=== PATIENT | female | born 1995 | race Caucasian/White ===

== ENCOUNTER → 2021-09-30 | Outpatient (REF) | LOC: M LABSMTC 09:33 | PROVIDERS: ATTEND Pediatrics | DX: Z20.822 Contact with and (suspected) exposure to COVID-19 (principal) ==

== ENCOUNTER → 2022-01-08 | Outpatient (CLI) | payer OTHER ==
[2022-01-08 17:17] LABS: BASO % 0.5 % (0.0-1.0); EOS # 0.1 10^3/uL (0.0-0.5); EOS % 0.8 % (0.0-3.0); HEMOGLOBIN 11.4 g/dl (12.0-15.5); LYMPH # 1.8 10^3/uL (1.5-5.0); LYMPH % 23.7 % (24.0-44.0); MEAN CORPUSCULAR HEMOGLOBIN 19.8 pg (27.0-33.0); MEAN CORPUSCULAR HGB CONC 30.8 g/dl (32.0-36.5); MEAN CORPUSCULAR VOLUME 64.3 fl (80.0-96.0); MONO # 0.5 10^3/uL (0.0-0.8); MONO % 6.8 % (2.0-8.0); NEUTROPHILS # 5.1 10^3/uL (1.5-8.5); NEUTROPHILS % 67.9 % (36.0-66.0); PLATELET COUNT, AUTOMATED 243 10^3/uL (150-450); RED BLOOD COUNT 5.75 10^6/uL (4.00-5.40); WHITE BLOOD COUNT 7.5 10^3/uL (4.0-10.0)
[2022-01-08 17:45] LABS: ALBUMIN 4.2 GM/DL (3.2-5.2); ALT/SGPT 30 U/L (12-78); BILIRUBIN,TOTAL 0.4 MG/DL (0.2-1.0); BLOOD UREA NITROGEN 7 MG/DL (7-18); CALCIUM LEVEL 9.4 MG/DL (8.5-10.1); CARBON DIOXIDE LEVEL 27 MEQ/L (21-32); CHLORIDE LEVEL 109 MEQ/L (98-107); FERRITIN 12 NG/ML (8-252); FREE T4 0.76 NG/DL (0.76-1.46); GLOMERULAR FILTRATION RATE > 60.0 (>60); GLUCOSE, FASTING 80 MG/DL (70-100); IRON (FE) 52 UG/DL (50-170); PERCENT SATURATION 13.9 % (13.2-45.0); POTASSIUM SERUM 4.3 MEQ/L (3.5-5.1); SODIUM LEVEL 141 MEQ/L (136-145); TOTAL IRON BINDING CAPACITY 375 UG/DL (250-450); TOTAL PROTEIN 6.9 GM/DL (6.4-8.2)
== END ==
LOC: M PLALAB 15:36
PROVIDERS: ATTEND Physician Assistant
DX: R53.83 Other fatigue (principal)

== ENCOUNTER → 2022-02-05 | Outpatient (CLI) | payer OTHER ==
[2022-02-05 19:07] LABS: MONO REFLEX EBV VCA IgM NEGATIVE (NEGATIVE)
[2022-02-07 15:08] LABS: EBV VIRAL CAPSID AG IgM <36.0 U/mL (0.0-35.9)
== END ==
LOC: M PLALAB 15:20
PROVIDERS: ATTEND Physician Assistant
DX: R53.83 Other fatigue (principal)
CPT/HCPCS: 36415; 86308; 86618; 86665; G0463

== ENCOUNTER → 2022-02-14 | Outpatient (CLI) | payer OTHER | LOC: M CARPUL 11:02 | PROVIDERS: ATTEND Physician Assistant | DX: Z87.09 Personal history of other diseases of the respiratory system (principal) ==

== ENCOUNTER → 2022-04-02 | Outpatient (CLI) | payer OTHER ==
[2022-04-02 17:23] LABS: C REACTIVE PROTEIN QUANTITATIV < 0.30 MG/DL (0.00-0.30); RHEUMATOID FACTOR QUANT < 10.0 IU/ML (<15.0)
[2022-04-05 01:07] LABS: ANA (HEP2) Negative (.); CYCLIC CITRULLINATED PEPTIDE 6 units (0-19)
== END ==
LOC: M PLAIMG 13:52
PROVIDERS: ATTEND Physician Assistant
DX: M62.830 Muscle spasm of back (principal)

== ENCOUNTER → 2022-04-09 | Outpatient (CLI) | payer OTHER ==
[2022-04-09 10:32] LABS: BASO % 0.4 % (0.0-1.0); EOS # 0.1 10^3/uL (0.0-0.5); EOS % 1.2 % (0.0-3.0); HEMATOCRIT 37.6 % (36.0-47.0); HEMOGLOBIN 11.8 g/dl (12.0-15.5); LYMPH # 1.2 10^3/uL (1.5-5.0); LYMPH % 25.6 % (24.0-44.0); MEAN CORPUSCULAR HEMOGLOBIN 20.4 pg (27.0-33.0); MEAN CORPUSCULAR HGB CONC 31.4 g/dl (32.0-36.5); MEAN CORPUSCULAR VOLUME 65.1 fl (80.0-96.0); MONO # 0.4 10^3/uL (0.0-0.8); MONO % 7.9 % (2.0-8.0); NEUTROPHILS # 3.1 10^3/uL (1.5-8.5); NEUTROPHILS % 64.3 % (36.0-66.0); PLATELET COUNT, AUTOMATED 240 10^3/uL (150-450); RED BLOOD COUNT 5.78 10^6/uL (4.00-5.40); WHITE BLOOD COUNT 4.8 10^3/uL (4.0-10.0)
[2022-04-09 10:50] LABS: PERCENT SATURATION 15.3 % (13.2-45.0)
[2022-04-12 17:07] LABS: FACTOR 8 RISTOCETIN COFACTOR 28 % (50-200); FACTOR VIII ACTIVITY 42 % (56-140); FACTOR VIII AG (VON WILLEBRAN) 55 % (50-200); HOMOCYST(E)INE SERUM 6.7 umol/L (0.0-14.5)
== END ==
LOC: M PLALAB 07:53
PROVIDERS: ATTEND Internal Medicine Hematology
DX: D56.9 Thalassemia, unspecified (principal)

== ENCOUNTER → 2022-04-16 | Outpatient (CLI) | payer OTHER | LOC: M SLEEP HO 08:34 | PROVIDERS: ATTEND Physician Assistant | DX: R53.83 Other fatigue (principal); R06.83 Snoring ==

== ENCOUNTER → 2022-05-20 | Outpatient (REF) ==
[2022-05-20 13:19] LABS: RSV AMPLIFICATION NEGATIVE (NEGATIVE)
== END ==
LOC: M LABSMTC 10:46
PROVIDERS: ATTEND Family Medicine
DX: Z20.822 Contact with and (suspected) exposure to COVID-19 (principal); Z11.52 Encounter for screening for COVID-19

== ENCOUNTER → 2022-05-22 | Outpatient (REF) | payer OTHER | LOC: M SFHCPLAZ 17:14 | PROVIDERS: ATTEND Internal Medicine Hematology | DX: N30.00 Acute cystitis without hematuria (principal) ==

== ENCOUNTER → 2022-06-05 | Outpatient (CLI) | payer OTHER | LOC: M SOG 08:36 | PROVIDERS: ATTEND Orthopaedic Surgery | DX: M25.532 Pain in left wrist (principal) ==

== ENCOUNTER → 2022-06-18 | Outpatient (CLI) | payer OTHER | LOC: M SOG 08:35 | PROVIDERS: ATTEND Orthopaedic Surgery | DX: S60.212A Contusion of left wrist, initial encounter (principal); X58.XXXA Exposure to other specified factors, initial encounter; Y92.9 Unspecified place or not applicable; Y93.9 Activity, unspecified; Y99.9 Unspecified external cause status ==

== ENCOUNTER → 2022-07-04 | Outpatient (CLI) | payer OTHER | LOC: M PLARAD 07:38 | PROVIDERS: ATTEND Nurse Practitioner Family | DX: M54.40 Lumbago with sciatica, unspecified side (principal) ==

== ENCOUNTER → 2022-07-16 | Outpatient (REF) | payer OTHER | LOC: M PLALAB 15:22 | PROVIDERS: ATTEND Advanced Practice Midwife | DX: R87.610 Atypical squamous cells of undetermined significance on cytologic smear of cervix (ASC-US) (principal); Z12.4 Encounter for screening for malignant neoplasm of cervix | CPT/HCPCS: 87624; G0123; G0463 ==

== ENCOUNTER → 2022-08-19 | Outpatient (CLI) | payer OTHER ==
[2022-08-19 11:01] LABS: BASO % 0.3 % (0.0-1.0); EOS # 0.1 10^3/uL (0.0-0.5); EOS % 1.3 % (0.0-3.0); HEMATOCRIT 38.7 % (36.0-47.0); HEMOGLOBIN 11.7 g/dl (12.0-15.5); LYMPH # 1.5 10^3/uL (1.5-5.0); LYMPH % 24.2 % (24.0-44.0); MEAN CORPUSCULAR HEMOGLOBIN 19.9 pg (27.0-33.0); MEAN CORPUSCULAR HGB CONC 30.2 g/dl (32.0-36.5); MEAN CORPUSCULAR VOLUME 65.8 fl (80.0-96.0); MONO # 0.4 10^3/uL (0.0-0.8); MONO % 6.6 % (2.0-8.0); NEUTROPHILS # 4.3 10^3/uL (1.5-8.5); NEUTROPHILS % 67.1 % (36.0-66.0); PLATELET COUNT, AUTOMATED 263 10^3/uL (150-450); RED BLOOD COUNT 5.88 10^6/uL (4.00-5.40); WHITE BLOOD COUNT 6.4 10^3/uL (4.0-10.0)
[2022-08-19 11:33] LABS: PERCENT SATURATION 24.6 % (13.2-45.0); TOTAL 25(OH) VITAMIN D 27.6 NG/ML (20.0-100.0)
[2022-08-19 11:34] LABS: THYROID STIMULATING HORMONE 2.635 uIU/ML (0.55-4.78)
[2022-08-21 04:07] LABS: FACTOR 8 RISTOCETIN COFACTOR 49 % (50-200); FACTOR VIII AG (VON WILLEBRAN) 83 % (50-200)
== END ==
LOC: M PLALAB 08:03
PROVIDERS: ATTEND Internal Medicine Hematology
DX: R53.83 Other fatigue (principal); R79.1 Abnormal coagulation profile

== ENCOUNTER → 2022-10-23 | Outpatient (CLI) | payer OTHER ==
[~2022-10-23] MED LIST: DESM1SPR; FERR325T15; FOLI1TAB11; IBUP1TAB7 PO; MODA100T13 PO; ONDA4TAB6 PO; PROZ40CA PO; SUMA50TA2 PO; TOPA1TAB PO
[2022-10-27 14:08] LABS: FACTOR 8 RISTOCETIN COFACTOR 49 % (50-200); FACTOR VIII ACTIVITY 64 % (56-140); FACTOR VIII AG (VON WILLEBRAN) 66 % (50-200)
== END ==
LOC: M PLALAB 10:29
PROVIDERS: ATTEND Internal Medicine Hematology
DX: Z01.818 Encounter for other preprocedural examination (principal)

== ENCOUNTER → 2022-10-27 | Outpatient (CLI) | payer OTHER ==
[~2022-10-27] MED LIST changes: -DESM1SPR; +DESM1SPR NARES; +MODA200T15 PO; +NIFE15CA PO; +ONDA-195 PO; +PROBCAP14 PO; +TOPI100T9 PO
[2022-10-30 17:08] LABS: F8 ACTIVITY FOR F8 PANEL 55 % (56-140); F8 ACTIVITY vWB FOR F8 PANEL 45 % (50-200); F8 ANTIGEN FOR F8 PANEL 64 % (50-200)
== END ==
LOC: M PLALAB 14:19
PROVIDERS: ATTEND Internal Medicine Hematology
DX: D68.00 Von Willebrand disease, unspecified (principal)

== ENCOUNTER → 2022-10-27 | Outpatient (CLI) | payer OTHER ==
[~2022-10-27] MED LIST changes: +DESM1SPR; -DESM1SPR NARES; -MODA200T15 PO; -NIFE15CA PO; -ONDA-195 PO; -PROBCAP14 PO; -TOPI100T9 PO
== END ==
LOC: M LABSMTC 10:05
PROVIDERS: ATTEND Anesthesiology
DX: Z01.812 Encounter for preprocedural laboratory examination (principal); Z11.52 Encounter for screening for COVID-19

== ENCOUNTER 2022-10-29 10:49 | Day surgery (SDC) | payer OTHER ==
[~2022-10-29] VITALS: Ht 170.2 cm; Wt 70.8 kg
[~2022-10-29 10:49] MED LIST changes: -DESM1SPR; +DESM1SPR NARES; +ceFAZolin SOD 2 GM in IV 1 EA IV ONE
[2022-10-29 11:16] LABS: HEMATOCRIT 37.7 % (36.0-47.0); HEMOGLOBIN 11.7 g/dl (12.0-15.5); MEAN CORPUSCULAR HEMOGLOBIN 20.1 pg (27.0-33.0); MEAN CORPUSCULAR VOLUME 64.9 fl (80.0-96.0); PLATELET COUNT, AUTOMATED 282 10^3/uL (150-450); RED BLOOD COUNT 5.81 10^6/uL (4.00-5.40); WHITE BLOOD COUNT 5.6 10^3/uL (4.0-10.0)
[2022-10-29] MEDS ORDERED: LR 1,000 ML IV SCH (11:55)
[2022-10-29 12:06] LABS: HCG, SERUM QUALITATIVE NEGATIVE (NEGATIVE)
[2022-10-29] MEDS ORDERED: ANTIHEMOPHILIC FACTOR IV ONE ×2 (13:00→23:00)
[2022-10-29] MEDS ORDERED: [UNRECOGNIZED DRUG - OTHER] IV ONE (13:00)
[2022-10-29] MEDS ORDERED: fentaNYL 100 MCG/2 ML INJECTION As Ordered ONE (14:25)
[2022-10-29] MEDS ORDERED: ROCURONIUM BROMIDE 50MG/5ML VIAL As Ordered ONE ×2 (14:25→16:53)
[2022-10-29] MEDS ORDERED: ONDANSETRON 4MG 2ML VIAL As Ordered ONE (14:25)
[2022-10-29] MEDS ORDERED: SUGAMMADEX SODIUM 500 MG/5 ML VIAL (BRIDION) As Ordered ONE (14:25)
[2022-10-29] MEDS ORDERED: LIDOCAINE 2% 100MG/5ML SDV (FOR ANES.) As Ordered ONE (14:25)
[2022-10-29] MEDS ORDERED: MIDAZOLAM INJ 2MG/2ML VIAL As Ordered ONE (14:25)
[2022-10-29] MEDS ORDERED: propofoL 200 MG/20 ML VIAL As Ordered ONE (14:25)
[2022-10-29] MEDS ORDERED: KETOROLAC 60MG 2ML VIAL As Ordered ONE (14:25)
[2022-10-29] MEDS ORDERED: BUPIVACAINE HCL 0.25% 30ML VIAL As Ordered ONE (15:40)
[2022-10-29] MEDS ORDERED: HYDROmorphone HCL 2MG/ML 1ML VIAL As Ordered ONE (16:33)
[2022-10-29] MEDS: [UNRECOGNIZED DRUG - OTHER] IV SCH (17:07)
[2022-10-29] MEDS: ANTIHEMOPHILIC FACTOR IV SCH (17:07)
[2022-10-29] MEDS ORDERED: LABETALOL 100MG/20ML VIAL As Ordered ONE (17:10)
[2022-10-29] MEDS ORDERED: ACETAMINOPHEN 1000MG 100ML IV BAG As Ordered ONE (18:04)
[2022-10-29] MEDS ORDERED: METOCLOPRAMIDE INJ 10MG/2ML VIAL IV PRN (18:10)
[2022-10-29] MEDS ORDERED: fentaNYL 100 MCG/2 ML INJECTION IV PRN (18:10)
[2022-10-29] MEDS ORDERED: HYDROMORPHONE HCL 0.5 MG/ 0.5 ML SYRINGE IV PRN (18:10)
[2022-10-29] MEDS ORDERED: ONDANSETRON 4MG 2ML VIAL IV PRN (18:10)
[2022-10-29] MEDS ORDERED: oxyCODONE 5MG TAB PO PRN (18:10)
[2022-10-29] MEDS ORDERED: PROMETHAZINE 25MG/ML 1ML VIAL IV PRN (18:25)
[2022-10-29] MEDS ORDERED: MORPHINE 4 MG/ML 1ML VIAL IV PRN (18:25)
[2022-10-29 20:00] VITALS: BP 109/63
[2022-10-29 20:30] VITALS: BP 111/60
[2022-10-29 21:00] VITALS: BP 109/57
[2022-10-29 22:00] VITALS: BP 108/57
[2022-10-29] MEDS ORDERED: HUMATE P IV ONE (23:00)
[2022-10-29] MEDS ORDERED: [UNRECOGNIZED DRUG - OTHER] IV ONE (23:00)
[2022-10-29 23:01] VITALS: BP 103/57
[2022-10-29] MEDS: PERCOCET 5MG/325MG TAB PO PRN (23:53)
[2022-10-30] VITALS (7 sets, daily range): BP systolic 95–119; BP diastolic 54–73
[2022-10-30 06:02] LABS: HEMATOCRIT 31.1 % (36.0-47.0); HEMOGLOBIN 9.8 g/dl (12.0-15.5); MEAN CORPUSCULAR HEMOGLOBIN 20.4 pg (27.0-33.0); MEAN CORPUSCULAR HGB CONC 31.5 g/dl (32.0-36.5); MEAN CORPUSCULAR VOLUME 64.7 fl (80.0-96.0); PLATELET COUNT, AUTOMATED 235 10^3/uL (150-450); RED BLOOD COUNT 4.81 10^6/uL (4.00-5.40); WHITE BLOOD COUNT 12.6 10^3/uL (4.0-10.0)
[2022-10-30] MEDS: PERCOCET 5MG/325MG TAB PO PRN ×4 (06:44→19:28)
[2022-10-30] MEDS: ANTIHEMOPHILIC FACTOR IV SCH (07:07)
[2022-10-30] MEDS: [UNRECOGNIZED DRUG - OTHER] IV SCH (07:07)
[2022-10-30] MEDS ORDERED: NIFE15CA PO (11:33)
[2022-10-30] MEDS ORDERED: MODA200T15 PO (11:33)
[2022-10-30] MEDS ORDERED: ONDA-195 PO (11:33)
[2022-10-30] MEDS ORDERED: TOPI100T9 PO (11:33)
[2022-10-30] MEDS ORDERED: PROBCAP14 PO (11:33)
[2022-10-30] MEDS ORDERED: HOME MED LIST COMPLETE! XX SCH (11:35)
[2022-10-30] MEDS: FLUoxetine 20MG CAP PO SCH (13:26)
[2022-10-30] MEDS: MODAFINIL 100 MG TABLET PO SCH (13:26)
[2022-10-30 16:09] LABS: HEMATOCRIT 32.5 % (36.0-47.0); HEMOGLOBIN 10.1 g/dl (12.0-15.5); MEAN CORPUSCULAR HEMOGLOBIN 20.2 pg (27.0-33.0); MEAN CORPUSCULAR HGB CONC 31.1 g/dl (32.0-36.5); MEAN CORPUSCULAR VOLUME 64.9 fl (80.0-96.0); PLATELET COUNT, AUTOMATED 241 10^3/uL (150-450); RED BLOOD COUNT 5.01 10^6/uL (4.00-5.40); WHITE BLOOD COUNT 11.6 10^3/uL (4.0-10.0)
[2022-10-30] MEDS ORDERED: ONDANSETRON 4MG ORAL DISINTEGRATING TAB PO PRN (18:25)
[2022-10-31] VITALS: BP 103/57
[2022-10-31 04:00] VITALS: BP 118/75
[2022-10-31] MEDS: PERCOCET 5MG/325MG TAB PO PRN ×2 (04:13→09:02)
[2022-10-31] MEDS ORDERED: SIMETHICONE 80MG CHEW TAB PO PRN (05:50)
[2022-10-31 08:00] VITALS: BP 100/55
[2022-10-31] MEDS: MODAFINIL 100 MG TABLET PO SCH (09:22)
[2022-10-31] MEDS: FLUoxetine 20MG CAP PO SCH (09:22)
== END 2022-10-31 11:05 | disposition home or self-care (01) ==
LOC: M SDC 10:49 → M PED 20:00 → M SDC 10-31 11:05
PROVIDERS: ATTEND Obstetrics & Gynecology
DX: N92.0 Excessive and frequent menstruation with regular cycle (principal); D56.1 Beta thalassemia; D68.00 Von Willebrand disease, unspecified; G43.909 Migraine, unspecified, not intractable, without status migrainosus; J45.909 Unspecified asthma, uncomplicated; F32.A Depression, unspecified; Z79.899 Other long term (current) drug therapy
CPT/HCPCS: 36415; 58571; 84703; 85027; 86850; 86900; 86901; 88307; 96374; 96375; J0131; J0690; J1100; J1170; J1885; J2250; J2405; J2765; J3010; J7187; S0020; S2900

== ENCOUNTER → 2022-11-05 | Outpatient (CLI) | payer OTHER ==
[~2022-11-05] MED LIST changes: +MODA200T15 PO; +NIFE15CA PO; +ONDA-195 PO; +PROBCAP14 PO; +TOPI100T9 PO; -ceFAZolin SOD 2 GM in IV 1 EA IV ONE
[2022-11-05 15:28] LABS: HEMATOCRIT 35.9 % (36.0-47.0); HEMOGLOBIN 11.5 g/dl (12.0-15.5); MEAN CORPUSCULAR HEMOGLOBIN 20.2 pg (27.0-33.0); MEAN CORPUSCULAR VOLUME 63.1 fl (80.0-96.0); PLATELET COUNT, AUTOMATED 369 10^3/uL (150-450); RED BLOOD COUNT 5.69 10^6/uL (4.00-5.40); WHITE BLOOD COUNT 8.9 10^3/uL (4.0-10.0)
[2022-11-05 16:00] LABS: ALBUMIN 3.8 G/DL (3.2-5.2); ALKALINE PHOSPHATASE 123 U/L (46-116); ALT/SGPT 44 U/L (7.0-40); AST/SGOT 22 U/L (<34); BILIRUBIN,TOTAL 0.4 MG/DL (0.3-1.2); BLOOD UREA NITROGEN 9 MG/DL (9-23); CALCIUM LEVEL 9.2 MG/DL (8.5-10.1); CARBON DIOXIDE LEVEL 24 MMOL/L (20-31); CHLORIDE LEVEL 106 MMOL/L (98-107); CREATININE FOR GFR 0.75 MG/DL (0.55-1.30); GLOMERULAR FILTRATION RATE > 60.0 (>60); GLUCOSE, FASTING 109 MG/DL (60-100); POTASSIUM SERUM 3.9 MMOL/L (3.5-5.1); SODIUM LEVEL 137 MMOL/L (136-145)
== END ==
LOC: M PLALAB 14:35
PROVIDERS: ATTEND Internal Medicine Hematology
DX: I95.1 Orthostatic hypotension (principal)

== ENCOUNTER → 2022-11-11 | Outpatient (CLI) | payer OTHER | LOC: M WHC 09:10 | PROVIDERS: ATTEND Nurse Practitioner Family | DX: N63.21 Unspecified lump in the left breast, upper outer quadrant (principal) ==

== ENCOUNTER → 2022-11-18 | Outpatient (CLI) | payer OTHER ==
[2022-11-18 14:08] LABS: APPEARANCE, URINE CLEAR (CLEAR); BACTERIA, URINE AUTO NEGATIVE (NEGATIVE); BILIRUBIN, URINE AUTO NEGATIVE (NEGATIVE); BLOOD, URINE BLOOD 1+ (NEGATIVE); COLOR, URINE STRAW (YELLOW); GLUCOSE, URINE (UA) AUTO NEGATIVE (NEGATIVE); KETONE, URINE AUTO NEGATIVE (NEGATIVE); LEUKOCYTE ESTERASE, URINE AUTO NEGATIVE (NEGATIVE); NITRITE, URINE AUTO NEGATIVE (NEGATIVE); PROTEIN, URINE AUTO NEGATIVE (NEGATIVE); RBC, URINE AUTO 0 /HPF (0-3); SPECIFIC GRAVITY URINE AUTO 1.002 (1.002-1.035); SQUAMOUS EPITHELIAL CELL UR AU 0 /HPF (0-6); UROBILINOGEN, URINE AUTO 0.2 mg/dL (0.0-2.0); WBC, URINE AUTO 0 /HPF (0-3)
[2022-11-18 14:13] LABS: HEMATOCRIT 36.5 % (36.0-47.0); HEMOGLOBIN 11.5 g/dl (12.0-15.5); MEAN CORPUSCULAR HEMOGLOBIN 20.2 pg (27.0-33.0); MEAN CORPUSCULAR HGB CONC 31.5 g/dl (32.0-36.5); MEAN CORPUSCULAR VOLUME 64.3 fl (80.0-96.0); PLATELET COUNT, AUTOMATED 293 10^3/uL (150-450); RED BLOOD COUNT 5.68 10^6/uL (4.00-5.40); WHITE BLOOD COUNT 6.6 10^3/uL (4.0-10.0)
== END ==
LOC: M PLALAB 09:05
PROVIDERS: ATTEND Obstetrics & Gynecology
DX: Z48.816 Encounter for surgical aftercare following surgery on the genitourinary system (principal)

== ENCOUNTER → 2022-12-24 | Outpatient (CLI) | payer OTHER ==
[2022-12-24 12:20] LABS: BASO % 0.5 % (0.0-1.0); EOS # 0.1 10^3/uL (0.0-0.5); HEMATOCRIT 38.8 % (36.0-47.0); HEMOGLOBIN 11.9 g/dl (12.0-15.5); LYMPH # 1.5 10^3/uL (1.5-5.0); LYMPH % 24.7 % (24.0-44.0); MEAN CORPUSCULAR HEMOGLOBIN 19.9 pg (27.0-33.0); MEAN CORPUSCULAR HGB CONC 30.7 g/dl (32.0-36.5); MEAN CORPUSCULAR VOLUME 64.8 fl (80.0-96.0); MONO # 0.4 10^3/uL (0.0-0.8); MONO % 7.2 % (2.0-8.0); NEUTROPHILS # 4.1 10^3/uL (1.5-8.5); NEUTROPHILS % 66.1 % (36.0-66.0); PLATELET COUNT, AUTOMATED 237 10^3/uL (150-450); RED BLOOD COUNT 5.99 10^6/uL (4.00-5.40); WHITE BLOOD COUNT 6.1 10^3/uL (4.0-10.0)
[2022-12-24 12:23] LABS: CORTISOL AM 12.6 UG/DL (4.3-22.4)
[2022-12-24 12:26] LABS: FREE T4 0.94 NG/DL (0.89-1.76); THYROID STIMULATING HORMONE 2.244 uIU/ML (0.55-4.78)
[2022-12-24 12:27] LABS: FERRITIN 13.5 NG/ML (7.3-270.7)
[2022-12-24 12:28] LABS: TOTAL 25(OH) VITAMIN D 15.3 NG/ML (20.0-100.0)
[2022-12-24 12:32] LABS: HEMATOCRIT 38.5 % (36.0-47.0)
== END ==
LOC: M PLALAB 08:04
PROVIDERS: ATTEND Internal Medicine Hematology
DX: R53.83 Other fatigue (principal)

== ENCOUNTER → 2023-01-09 | Outpatient (CLI) | payer OTHER | LOC: M SLEEP 20:00 | PROVIDERS: ATTEND Internal Medicine Pulmonary Disease | DX: R06.83 Snoring (principal) ==

== ENCOUNTER → 2023-01-27 | Outpatient (CLI) | payer OTHER ==
[2023-01-27 11:36] LABS: ALBUMIN 4.1 G/DL (3.2-5.2); ALKALINE PHOSPHATASE 72 U/L (46-116); ALT/SGPT 29 U/L (7.0-40); AST/SGOT 17 U/L (<34); BILIRUBIN,TOTAL 0.4 MG/DL (0.3-1.2); BLOOD UREA NITROGEN 12 MG/DL (9-23); CALCIUM LEVEL 9.2 MG/DL (8.5-10.1); CARBON DIOXIDE LEVEL 23 MMOL/L (20-31); CHLORIDE LEVEL 109 MMOL/L (98-107); CORTISOL AM 9.6 UG/DL (4.3-22.4); CREATININE FOR GFR 0.77 MG/DL (0.55-1.30); GLOMERULAR FILTRATION RATE > 60.0 (>60); GLUCOSE, FASTING 75 MG/DL (60-100); IRON (FE) 76 UG/DL (50-170); PERCENT SATURATION 22.5 % (13.2-45.0); POTASSIUM SERUM 4.4 MMOL/L (3.5-5.1); SODIUM LEVEL 140 MMOL/L (136-145); TOTAL IRON BINDING CAPACITY 338 UG/DL (250-425); TOTAL PROTEIN 6.9 G/DL (5.7-8.2)
[2023-01-27 11:39] LABS: C REACTIVE PROTEIN QUANTITATIV < 0.40 MG/DL (<1.0)
[2023-01-27 11:40] LABS: FERRITIN 25.9 NG/ML (7.3-270.7)
[2023-01-27 11:42] LABS: FREE T4 0.87 NG/DL (0.89-1.76); VITAMIN B12 LEVEL 483 PG/ML (211-911)
[2023-01-27 13:13] LABS: HEMATOCRIT 35.7 % (36.0-47.0); HEMOGLOBIN 11.7 g/dl (12.0-15.5); MEAN CORPUSCULAR HEMOGLOBIN 20.2 pg (27.0-33.0); MEAN CORPUSCULAR HGB CONC 32.8 g/dl (32.0-36.5); MEAN CORPUSCULAR VOLUME 61.7 fl (80.0-96.0); PLATELET COUNT, AUTOMATED 459 10^3/uL (150-450); RED BLOOD COUNT 5.79 10^6/uL (4.00-5.40); WHITE BLOOD COUNT 7.5 10^3/uL (4.0-10.0)
== END ==
LOC: M PLALAB 09:02
PROVIDERS: ATTEND Internal Medicine Hematology
DX: N92.0 Excessive and frequent menstruation with regular cycle (principal)
CPT/HCPCS: 36415; 74019; 80053; 82533; 82607; 82728; 83550; 84439; 84443; 84466; 85027; 85046; 85290; 86140; G0463